=== PATIENT | male | born 1995 | race Caucasian/White ===

== ENCOUNTER 2016-05-06 07:44 | Emergency (ER) | payer SELFPAY ==
[~2016-05-06] VITALS: Ht 182.9 cm; Wt 93.0 kg
[~2016-05-06 07:44] MED LIST: CEPH500C PO; INSULIN PUMP; SULF1TAB38 PO; TRAM50TA2 PO
[2016-05-06] MEDS ORDERED: NS IV 1000 ML 1,000 ML IV ONE (07:50)
--- NOTE | 2016-05-06 08:03 | ED General ---
General Chief Complaint: Glucose Problems Stated Complaint: LOW BLOOD SUGAR Nursing Triage Note: c/o seizure-like activity while in bed this morning. Pt was given a injection of glucagon by his girlfriend. BS was in the 30s by EMS. On ER, pt awake but mildly confused. Nursing Sepsis Screen: No Definite Risk Source of Information: Patient Exam Limitations: No Limitations History of Present Illness Time Seen by Provider: 07:43 Initial Comments Here with report of seizure this morning and low blood sugar. He has had seizures with low blood sugar previously. He is a diabetic and is on an insulin pump. His girlfriend noted that he was convulsing when she woke up this morning. She did check his blood sugar and it was 30s. She did give him a shot of glucagon. EMS was summoned. On their arrival his blood sugar was in the 50s and then greater than 100. They did initiate an IV and monitor him. He was postictal and somewhat confused but otherwise no other complaints. Girlfriend did remove the insulin pump. Aside from being mildly confused currently he is having no complaints. Girlfriend reports that he did not hit his head or fall. Timing/Duration: 1/2 Hour Severity: Moderate Modifying Factors: improves with Medication Associated Systoms: Seizure Allergies and Home Medications Allergies Coded Allergies: promethazine (Unverified Adverse Reaction, Unknown, MADE HIM RESTLESS AFTER GIVING. , 10/08/13) Home Medications [Insulin Pump] , (Reported) Constitutional: see HPI, No chills, No fever EENTM: other (small abrasion on tongue) Respiratory: no symptoms reported Cardiovascular: no symptoms reported Gastrointestinal: no symptoms reported Genitourinary: no symptoms reported Musculoskeletal: no symptoms reported Skin: lesions (few abrasions.) All Other Systems Reviewed Negative Unless Noted: Yes Past Wbrzuut-Ajfatp-Mticge Hx Patient Social History Alcohol Use: Occasionally Uses Recreational Drug Use: No Smoking Status: Never a Smoker Recent Foreign Travel: No Contact w/Someone Who Travel: No Recent Infectious Disease Expo: No Recent Hopitalizations: No Immunizations Up To Date Tetanus Booster (TDap): Unknown Surgeries HX Surgeries: No Respiratory Hx Respiratory Disorders: No Cardiovascular Hx Cardiac Disorders: No Neurological Hx Neurological Disorders: Yes (associated with hypoglycemia) Neurological Disorders: Seizure Disorder Reproductive System Hx Reproductive Disorders: No Sexually Transmitted Disease: No HIV/AIDS: No Genitourinary Hx Genitourinary Disorders: No Gastrointestinal Hx Gastrointestinal Disorders: Yes (CELIAC DISEASE) Musculoskeletal Hx Musculoskeletal Disorders: No Endocrine Hx Endocrine Disorders: Yes (INSULIN PUMP) Endocrine Disorders: Diabetes, Insulin dep HEENT HX ENT Disorders: No Reviewed Nursing Assessment Reviewed/Agree w Nursing PMH: Yes Family Medical History Significant Family History: No Pertinent Family Hx Physical Exam Vital Signs Vital Sign - Last 12Hours 05/06/16 07:50 Temp 98.7 Pulse 88 Resp 16 B/P (MAP) 139/86 Pulse Ox 96 O2 Delivery Room Air Capillary Refill : Less Than 3 Seconds General Appearance: No Apparent Distress, WD/WN HEENT: PERRL/EOMI, Pharynx Normal, Other (small abrasion to the tip of the left side of the tongue.) Neck: Non Tender, Supple Respiratory: Lungs Clear, Normal Breath Sounds Cardiovascular: Regular Rate, Rhythm, No Murmur Gastrointestinal: Non Tender, Soft Back: Normal Inspection, No CVA Tenderness, No Vertebral Tenderness Extremity: Non Tender, No Calf Tenderness Neurologic/Psychiatric: Alert, Oriented x3 Skin: Normal Color, Warm/Dry Progress/Results/Core Measures Results/Orders Lab Results Laboratory Tests Test 05/06/16 07:50 Range/Units White Blood Count 5.2 4.3-11.0 10^3/uL Red Blood Count 5.52 4.35-5.85 10^6/uL Hemoglobin 16.5 13.3-17.7 G/DL Hematocrit 47 40-54 % Mean Corpuscular Volume 85 80-99 FL Mean Corpuscular Hemoglobin 30 25-34 PG Mean Corpuscular Hemoglobin Concent 35 32-36 G/DL Red Cell Distribution Width 12.9 10.0-14.5 % Platelet Count 224 130-400 10^3/uL Mean Platelet Volume 9.6 7.4-10.4 FL Neutrophils (%) (Auto) 37 L 42-75 % Lymphocytes (%) (Auto) 45 H 12-44 % Monocytes (%) (Auto) 12 0-12 % Eosinophils (%) (Auto) 6 0-10 % Basophils (%) (Auto) 1 0-10 % Neutrophils # (Auto) 1.9 1.8-7.8 X 10^3 Lymphocytes # (Auto) 2.4 1.0-4.0 X 10^3 Monocytes # (Auto) 0.6 0.0-1.0 X 10^3 Eosinophils # (Auto) 0.3 0.0-0.3 10^3/uL Basophils # (Auto) 0.0 0.0-0.1 10^3/uL Sodium Level 141 135-145 MMOL/L Potassium Level 3.6 3.6-5.0 MMOL/L Chloride Level 104 98-107 MMOL/L Carbon Dioxide Level 24 21-32 MMOL/L Anion Gap 13 5-14 MMOL/L Blood Urea Nitrogen 15 7-18 MG/DL Creatinine 0.84 0.60-1.30 MG/DL Estimat Glomerular Filtration Rate > 60 BUN/Creatinine Ratio 18 Glucose Level 145 H 70-105 MG/DL Calcium Level 9.2 8.5-10.1 MG/DL Magnesium Level 2.0 1.8-2.4 MG/DL Total Bilirubin 0.9 0.1-1.0 MG/DL Aspartate Amino Transf (AST/SGOT) 35 H 5-34 U/L Alanine Aminotransferase (ALT/SGPT) 53 0-55 U/L Alkaline Phosphatase 48 40-136 U/L Total Protein 6.8 6.4-8.2 G/DL Albumin 4.3 3.2-4.5 G/DL My Orders Orders - CHANDAN POTTS MD Cbc With Automated Diff (05/06/16 07:50) Comprehensive Metabolic Panel (05/06/16 07:50) Magnesium (05/06/16 07:50) Ns Iv 1000 Ml (Sodium Chloride 0.9%) (05/06/16 07:50) Ondansetron Injection (Zofran Injectio (05/06/16 09:00) Medications Given in ED Current Medications Medications Dose Ordered Sig/Royer Route Start Time Stop Time Status Last Admin Dose Admin Ondansetron HCl 8 mg ONCE ONCE IVP 05/06/16 09:00 05/06/16 09:01 DC 05/06/16 09:02 8 MG Sodium Chloride 1,000 ml @ 0 mls/hr Q0M ONCE IV 05/06/16 07:50 05/06/16 07:51 DC 05/06/16 07:58 1,000 MLS/HR Vital Signs/I&O Vital Sign - Last 12Hours 05/06/16 07:50 Temp 98.7 Pulse 88 Resp 16 B/P (MAP) 139/86 Pulse Ox 96 O2 Delivery Room Air Blood Pressure Mean: 103 Progress Note : Progress Note Seen and evaluated. IV by EMS. Labs and normal saline 1 L bolus ordered. Monitor patient. Repeat fingerstick blood sugar was 153. Patient did report some nausea. Zofran 8 mg IV ordered. 929: Sugar 102. Patient states he feels much better. He has appointment with his primary physician today at 3 p.m. and he and his girlfriend will go there. Discharged home with return precautions. Patient verbalize understanding instructions and agreement with plan. Departure Impression Impression: Primary Impression: Hypoglycemic event in diabetes Disposition: HOME, SELF-CARE Condition: Improved Departure-Patient Inst. Decision time for Depature: 09:38 Referrals: NO,LOCAL PHYSICIAN (PCP/Family) Primary Care Physician Patient Instructions: HYPOGLYCEMIA Add. Discharge Instructions: All discharge instructions reviewed with patient and/or family. Voiced understanding. Continue home medications as directed. Eat a normal diet and drink plenty of fluids. Follow-up with your Dr. today as scheduled. Carefully monitor your blood sugars. Refill your glucagon prescription. Return for worsening, fever, vomiting, weakness, breathing problems or other concerns as needed. Copy Copies To 1: HÉCTOR VILLALOBOS MD, TIMOTHY D MD May 06, 2016 08:02
[2016-05-06 08:04] LABS: BASOPHILS % (AUTO) 1 % (0-10); EOSINOPHILS # (AUTO) 0.3 10^3/uL (0.0-0.3); EOSINOPHILS % (AUTO) 6 % (0-10); LYMPHOCYTES # (AUTO) 2.4 X 10^3 (1.0-4.0); LYMPHOCYTES % (AUTO) 45 % (12-44); MEAN CORPUSCULAR HEMOGLOBIN 30 PG (25-34); MEAN CORPUSCULAR HGB CONC 35 G/DL (32-36); MEAN CORPUSCULAR VOLUME 85 FL (80-99); MEAN PLATELET VOLUME 9.6 FL (7.4-10.4); MONOCYTES # (AUTO) 0.6 X 10^3 (0.0-1.0); MONOCYTES % (AUTO) 12 % (0-12); NEUTROPHILS # (AUTO) 1.9 X 10^3 (1.8-7.8); NEUTROPHILS % (AUTO) 37 % (42-75); PLATELET COUNT 224 10^3/uL (130-400); RED BLOOD COUNT 5.52 10^6/uL (4.35-5.85); RED CELL DISTRIBUTION WIDTH 12.9 % (10.0-14.5); WHITE BLOOD COUNT 5.2 10^3/uL (4.3-11.0)
[2016-05-06 08:25] LABS: ALANINE AMINOTRANSFERASE 53 U/L (0-55); ALBUMIN 4.3 G/DL (3.2-4.5); ANION GAP 13 MMOL/L (5-14); ASPARTATE AMINO TRANSFERASE 35 U/L (5-34); BILIRUBIN,TOTAL 0.9 MG/DL (0.1-1.0); BLOOD UREA NITROGEN 15 MG/DL (7-18); BUN/CREATININE RATIO 18; CALCIUM 9.2 MG/DL (8.5-10.1); CARBON DIOXIDE 24 MMOL/L (21-32); CHLORIDE 104 MMOL/L (98-107); CREATININE SERUM 0.84 MG/DL (0.60-1.30); GFR ESTIMATED > 60; GLUCOSE 145 MG/DL (70-105); POTASSIUM 3.6 MMOL/L (3.6-5.0); SODIUM 141 MMOL/L (135-145); TOTAL PROTEIN 6.8 G/DL (6.4-8.2)
[2016-05-06] MEDS ORDERED: ONDANSETRON 4 MG/2 ML (SDV) Z0FRAN IVP ONE (09:00)
[2016-05-06 09:45] VITALS: BP 134/76
--- OUTSIDE RECORDS SUMMARY | 2016-05-20 20:20 | XMS REPORT | Continuity of Care Document ---
Demographics Preferred Language Unknown Marital Status Unknown Taoist Affiliation Unknown Race Unknown Ethnic Group Unknown Author Author [facility] Address Unknown Phone Unavailable Allergies Active Description Code Type Severity Reaction Onset Reported/Identified Relationship to Patient Clinical Status Yes promethazine [id number] Drug Allergy Unknown MADE HIM RESTLE 10/08/2013 Medications Problems Date Dx Coded Attending Type Code Diagnosis Diagnosed By 12/11/2012 GALINDO MONK, INÉS R Ot 250.81 DIAB W OTH SPEC MANIFEST, TYPE I [JUVENI 04/19/2013 DHEERAJ WHITAKER SASH FINISHER Ot 682.3 CELLULITIS OF ARM 10/08/2013 JOSE PATEL DO Ot 250.80 DIAB W OTH SPEC MANIFEST, TYPE II OR UNS 01/09/2014 Ot 816.01 01/09/2014 Ot E000.8 01/09/2014 Ot E007.0 01/09/2014 Ot E928.9 01/09/2014 WILFREDO MONK, HÉCTOR Iglesias Ot 785.2 01/09/2014 KATHERINE HODGES DO Ot 250.01 01/09/2014 KATHERINE HODGES DO Ot 285.9 01/09/2014 KATHERINE HODGES DO Ot 493.90 01/09/2014 KATHERINE HODGES DO Ot 579.0 01/09/2014 Ot 816.01 01/09/2014 Ot E000.8 01/09/2014 Ot E007.0 01/09/2014 Ot E928.9 01/09/2014 HÉCTOR VILLALOBOS MD Ot 785.2 01/09/2014 KATHERINE HODGES DO Ot 250.01 01/09/2014 KATHERINE HODGES DO Ot 285.9 01/09/2014 KATHERINE HODGES DO Ot 493.90 01/09/2014 KATHERINE HODGES DO Ot 579.0 01/09/2014 AMRIT STALLWORTH Ot 882.0 OPEN WOUND OF HAND 01/09/2014 AMRIT STALLWORTH Ot E000.8 OTHER EXTERNAL CAUSE STATUS 01/09/2014 AMRIT STALLWORTH Ot E920.8 ACC-CUTTING INSTRUM NEC 01/09/2014 AMRIT STALLWORTH Ot V06.1 [id number], COMBINED [ 01/13/2014 Ot 816.01 01/13/2014 Ot E000.8 01/13/2014 Ot E007.0 01/13/2014 Ot E928.9 01/13/2014 WILFREDO MONK, HÉCTOR Iglesias Ot 785.2 01/13/2014 BORTMES DOKATHERINE E Ot 250.01 01/13/2014 BORTMES DO, KATHERINE E Ot 285.9 01/13/2014 BORTMES DO, KATHERINE E Ot 493.90 01/13/2014 BORTMES DO, KATHERINE E Ot 579.0 10/03/2014 Ot 816.01 10/03/2014 Ot E000.8 10/03/2014 Ot E007.0 10/03/2014 Ot E928.9 10/03/2014 WILFREDO MONK, HÉCTOR Iglesias Ot 785.2 10/03/2014 BORTMES DO, KATHERINE E Ot 250.01 10/03/2014 BORTMES DO, KATHERINE E Ot 285.9 10/03/2014 BORTMES DO, KATHERINE E Ot 493.90 10/03/2014 BORTMES DO, KATHERINE E Ot 579.0 10/19/2014 BORTMES DO, KATHERINE E Ot 250.01 10/19/2014 BORTMES DO, KATHERINE E Ot 281.9 10/19/2014 BORTMES DO, KATHERINE E Ot 579.0 11/10/2014 Ot 816.01 11/10/2014 Ot E000.8 11/10/2014 Ot E007.0 11/10/2014 Ot E928.9 11/10/2014 HÉCTOR VILLALOBOS MD Ot 785.2 11/10/2014 BORTMES DO, KATHERINE E Ot 250.01 11/10/2014 BORTMES DO, KATHERINE E Ot 285.9 11/10/2014 BORTMES DO, KATHERINE E Ot 493.90 11/10/2014 BORTMES DO, KATHERINE E Ot 579.0 11/10/2014 BORTMES DO, KATHERINE E Ot 250.01 11/10/2014 BORTMES DO, KATHERINE E Ot 281.9 11/10/2014 BORVANNESSAES DO, KATHERINE E Ot 579.0 06/09/2015 Ot 816.01 FX MID/PRX PHAL, HAND-CL 06/09/2015 Ot E000.8 OTHER EXTERNAL CAUSE STATUS 06/09/2015 Ot E007.0 ACTIVITIES INVOLVING BULGARIAN TACKLE NEHEMIAS 06/09/2015 Ot E928.9 ACCIDENT NOS 06/09/2015 WILFREDO MONK, HÉCTOR Iglesias Ot 785.2 CARDIAC MURMURS NEC 06/09/2015 BORTMES DO, KATHERINE E Ot 250.01 DIAB REY WO COMPL, TYPE I [JUVENILE TYP 06/09/2015 BORTMES DO, KATHERINE E Ot 285.9 ANEMIA NOS 06/09/2015 BORTMES DO, KATHERINE E Ot 493.90 ASTHMA, UNSPECIFIED 06/09/2015 BORTMES DO, KATHERINE E Ot 579.0 CELIAC DISEASE 06/09/2015 BORTMES DO, KATHERINE E Ot 250.01 DIAB REY WO COMPL, TYPE I [JUVENILE TYP 06/09/2015 BORTMES DO, KATHERINE E Ot 281.9 DEFICIENCY ANEMIA NOS 06/09/2015 BORTMES DO, KATHERINE E Ot 579.0 CELIAC DISEASE 06/09/2015 URIEL JOHNSON MD Ot E10.9 TYPE 1 DIABETES MELLITUS WITHOUT COMPLIC 06/09/2015 URIEL JOHNSON MD Ot R56.9 UNSPECIFIED CONVULSIONS 06/09/2015 URIEL JOHNSON MD Ot T38.3X5A ADVERSE EFFECT OF INSULIN AND ORAL HYPOG 06/11/2015 URIEL JOHNSON MD Ot E10.9 TYPE 1 DIABETES MELLITUS WITHOUT COMPLIC 06/11/2015 URIEL JOHNSON MD Ot R56.9 UNSPECIFIED CONVULSIONS 06/11/2015 URIEL JOHNSON MD Ot T38.3X5A ADVERSE EFFECT OF INSULIN AND ORAL HYPOG 06/12/2015 URIEL JOHNSON MD Ot E10.9 TYPE 1 DIABETES MELLITUS WITHOUT COMPLIC 06/12/2015 URIEL JOHNSON MD Ot R56.9 UNSPECIFIED CONVULSIONS 06/12/2015 URIEL JOHNSON MD Ot T38.3X5A ADVERSE EFFECT OF INSULIN AND ORAL HYPOG 06/12/2015 URIEL JOHNSON MD Ot E10.9 TYPE 1 DIABETES MELLITUS WITHOUT COMPLIC 06/12/2015 URIEL JOHNSON MD Ot R56.9 UNSPECIFIED CONVULSIONS 06/12/2015 URIEL JOHNSON MD Ot T38.3X5A ADVERSE EFFECT OF INSULIN AND ORAL HYPOG 07/04/2015 URIEL JOHNSON MD Ot E10.9 TYPE 1 DIABETES MELLITUS WITHOUT COMPLIC 07/04/2015 URIEL JOHNSON MD Ot R56.9 UNSPECIFIED CONVULSIONS 07/04/2015 URIEL JOHNSON MD, Ot T38.3X5A ADVERSE EFFECT OF INSULIN AND ORAL HYPOG 05/06/2016 CHANDAN POTTS MD Ot E11.649 TYPE 2 DIABETES MELLITUS WITH HYPOGLYCEM 05/06/2016 CHANDAN POTTS MD Ot G40.909 EPILEPSY, UNSP, NOT INTRACTABLE, WITHOUT 05/06/2016 CHANADN POTTS MD Ot Z96.41 PRESENCE OF INSULIN PUMP (EXTERNAL) ( INT 05/06/2016 CHANDAN POTTS MD, Ot E11.649 TYPE 2 DIABETES MELLITUS WITH HYPOGLYCEM 05/06/2016 CHANDAN POTTS MD Ot G40.909 EPILEPSY, UNSP, NOT INTRACTABLE, WITHOUT 05/06/2016 CHANDAN POTTS MD Ot Z96.41 PRESENCE OF INSULIN PUMP (EXTERNAL) ( INT 05/08/2016 WILFREDO MONK, HÉCTOR Iglesias Ot 785.2 CARDIAC MURMURS NEC 05/08/2016 KATHERINE HODGES DO Ot 250.01 DIAB REY WO COMPL, TYPE I [JUVENILE TYP 05/08/2016 KATHERINE HOGDES DO E Ot 285.9 ANEMIA NOS 05/08/2016 KATHERINE HODGES DO E Ot 493.90 ASTHMA, UNSPECIFIED 05/08/2016 KATHERINE HODGES DO E Ot 579.0 CELIAC DISEASE 05/08/2016 KATHERINE HODGES DO E Ot 250.01 DIAB REY WO COMPL, TYPE I [JUVENILE TYP 05/08/2016 KATHERINE HODGES DO E Ot 281.9 DEFICIENCY ANEMIA NOS 05/08/2016 KATHERINE HODGES DO E Ot 579.0 CELIAC DISEASE Procedures Results Test Result Range Capillary blood glucose measurement by glucometer (mass/volume) - 05/06/16 07: 46 Capillary blood glucose measurement by glucometer (mass/volume) 153 mg/dL 70-110 Complete blood count (CBC) with automated white blood cell (WBC) differential - 05/06/16 07:50 Blood leukocytes automated count (number/volume) 5.2 10*3/ uL 4.3-11.0 Blood erythrocytes automated count (number/volume) 5.52 10*6 /uL 4.35-5.85 Venous blood hemoglobin measurement (mass/volume) 16.5 g/dL 13.3-17.7 Blood hematocrit (volume fraction) 47 % 40-54 Automated erythrocyte mean corpuscular volume 85 [foz_us] 80-99 Automated erythrocyte mean corpuscular hemoglobin (mass per erythrocyte) 30 pg 25-34 Automated erythrocyte mean corpuscular hemoglobin concentration measurement ( mass/volume) 35 g/dL 32-36 Automated erythrocyte distribution width ratio 12.9 % 10.0-14.5 Automated blood platelet count (count/volume) 224 10*3/uL 130-400 Automated blood platelet mean volume measurement 9.6 [foz_us ] 7.4-10.4 Automated blood neutrophils/100 leukocytes 37 % 42-75 Automated blood lymphocytes/100 leukocytes 45 % 12-44 Blood monocytes/100 leukocytes 12 % 0-12 Automated blood eosinophils/100 leukocytes 6 % 0-10 Automated blood basophils/100 leukocytes 1 % 0-10 Blood neutrophils automated count (number/volume) 1.9 10*3 1.8-7.8 Blood lymphocytes automated count (number/volume) 2.4 10*3 1.0-4.0 Blood monocytes automated count (number/volume) 0.6 10*3 0.0-1.0 Automated eosinophil count 0.3 10*3/uL 0.0-0.3 Automated blood basophil count (count/volume) 0.0 10*3/uL 0.0-0.1 Comprehensive metabolic panel - 05/06/16 07:50 Serum or plasma sodium measurement (moles/volume) 141 mmol/ L 135-145 Serum or plasma potassium measurement (moles/volume) 3.6 mmol/L 3.6-5.0 Serum or plasma chloride measurement (moles/volume) 104 mmol /L 98-107 Carbon dioxide 24 mmol/L 21-32 Serum or plasma anion gap determination (moles/volume) 13 mmol/L 5-14 Serum or plasma urea nitrogen measurement (mass/volume) 15 mg/dL 7-18 Serum or plasma creatinine measurement (mass/volume) 0.84 mg /dL 0.60-1.30 Serum or plasma urea nitrogen/creatinine mass ratio 18 NRG Serum or plasma creatinine measurement with calculation of estimated glomerular filtration rate > NRG Serum or plasma glucose measurement (mass/volume) 145 mg/dL 70-105 Serum or plasma calcium measurement (mass/volume) 9.2 mg/dL 8.5-10.1 Serum or plasma total bilirubin measurement (mass/volume) 0.9 mg/dL 0.1-1.0 Serum or plasma alkaline phosphatase measurement (enzymatic activity/volume) 48 U/L 40-136 Serum or plasma aspartate aminotransferase measurement (enzymatic activity/ volume) 35 U/L 5-34 Serum or plasma alanine aminotransferase measurement (enzymatic activity/volume ) 53 U/L 0-55 Serum or plasma protein measurement (mass/volume) 6.8 g/dL 6.4-8.2 Serum or plasma albumin measurement (mass/volume) 4.3 g/dL 3.2-4.5 Magnesium - 05/06/16 07:50 Magnesium 2.0 mg/dL 1.8-2.4 Capillary blood glucose measurement by glucometer (mass/volume) - 05/06/16 09: 31 Capillary blood glucose measurement by glucometer (mass/volume) 103 mg/dL 70-110 Encounters ACCT No. Visit Date/Time Discharge Status Pt. Type Provider Facility Loc./Unit Complaint [id number] 02/18/2012 19:53:58 RECURRING
== END 2016-05-06 09:43 | disposition home or self-care (01) ==
LOC: EDUNIT# 07:44 → ER 07:49
DX: G40.909 Epilepsy, unspecified, not intractable, without status epilepticus (principal); E11.649 Type 2 diabetes mellitus with hypoglycemia without coma; Z96.41 Presence of insulin pump (external) (internal)
CPT/HCPCS: 36415; 80053; 82962; 83735; 85025; 96361; 96374

== ENCOUNTER 2017-04-30 16:16 | Emergency (ER) | payer OTHER, BC ==
[~2017-04-30] VITALS: Ht 182.9 cm; Wt 95.3 kg
[2017-04-30 17:00] LABS: BASOPHILS % (AUTO) 0 % (0-10); EOSINOPHILS # (AUTO) 0.1 10^3/uL (0.0-0.3); EOSINOPHILS % (AUTO) 1 % (0-10); HEMATOCRIT 43 % (40-54); HEMOGLOBIN 15.7 G/DL (13.3-17.7); LYMPHOCYTES # (AUTO) 1.3 X 10^3 (1.0-4.0); LYMPHOCYTES % (AUTO) 14 % (12-44); MEAN CORPUSCULAR HEMOGLOBIN 30 PG (25-34); MEAN CORPUSCULAR HGB CONC 36 G/DL (32-36); MEAN CORPUSCULAR VOLUME 81 FL (80-99); MONOCYTES # (AUTO) 0.6 X 10^3 (0.0-1.0); MONOCYTES % (AUTO) 7 % (0-12); NEUTROPHILS # (AUTO) 7.2 X 10^3 (1.8-7.8); NEUTROPHILS % (AUTO) 78 % (42-75); PLATELET COUNT 238 10^3/uL (130-400); RED BLOOD COUNT 5.33 10^6/uL (4.35-5.85); RED CELL DISTRIBUTION WIDTH 13.1 % (10.0-14.5); WHITE BLOOD COUNT 9.3 10^3/uL (4.3-11.0)
[2017-04-30] MEDS ORDERED: ONDANSETRON 4 MG/2 ML (SDV) Z0FRAN IVP ONE (17:00)
[2017-04-30] MEDS ORDERED: NS IV 1000 ML 1,000 ML IV SCH (17:00)
[2017-04-30 17:20] LABS: ALANINE AMINOTRANSFERASE 22 U/L (0-55); ALBUMIN 4.8 GM/DL (3.2-4.5); ALKALINE PHOSPHATASE 45 U/L (40-136); BILIRUBIN,TOTAL 0.8 MG/DL (0.1-1.0); BUN/CREATININE RATIO 17; CALCIUM 9.5 MG/DL (8.5-10.1); CARBON DIOXIDE 29 MMOL/L (21-32); CHLORIDE 103 MMOL/L (98-107); CREATININE SERUM 0.84 MG/DL (0.60-1.30); GFR ESTIMATED > 60; GLUCOSE 106 MG/DL (70-105); POTASSIUM 3.4 MMOL/L (3.6-5.0); SODIUM 140 MMOL/L (135-145); TOTAL PROTEIN 7.7 GM/DL (6.4-8.2)
--- NOTE | 2017-04-30 17:21 | Diagnostic Imaging Report ---
PROCEDURE: CT head without contrast. TECHNIQUE: Multiple contiguous axial images were obtained through the brain without the use of intravenous contrast. DATE: April 30, 2017. COMPARISON: CT head December 11, 2012. INDICATION: 21-year-old male, seizure. FINDINGS: The ventricles and cerebral spinal fluid spaces are of normal size and configuration for the patient's age. There is no mass effect or midline shift. There is no acute intracranial hemorrhage. There is no abnormal extra-axial fluid collection. The visualized portions of the paranasal sinuses, mastoid air cells and middle ears are well aerated. IMPRESSION: 1. No identified acute intracranial abnormality. Dictated by: Dictated on workstation # [id number]
--- NOTE | 2017-04-30 17:36 | ED General ---
General Chief Complaint: Neurological Problems Stated Complaint: SEIZURE Nursing Triage Note: c/o suspected seizure activity. Pt was found at his house confused with the bed sheets "all messed up". Hx of hypoglycemia related seizures. Nursing Sepsis Screen: No Definite Risk Source of Information: Patient, Other (significant other) Exam Limitations: No Limitations History of Present Illness Date Seen by Provider: Apr 30, 2017 Time Seen by Provider: 17:31 Initial Comments The patient is a 21-year-old white male who comes to the emergency room with a history of possibly having had a seizure. This happened while he was sleeping at about 1500 hours. He has previously had a hypoglycemic seizure about one year ago. He is a juvenile diabetic with the onset at age 2. He uses a pump and would have been on his basal rate during his sleeping hours. He states that his last hemoglobin A1c was 7.4. Timing/Duration: 1-3 Hours Allergies and Home Medications Allergies Coded Allergies: promethazine (Unverified Adverse Reaction, Unknown, MADE HIM RESTLESS AFTER GIVING. , 10/08/13) Patient Home Medication List Home Medication List Reviewed: Yes Constitutional: see HPI EENTM: no symptoms reported Respiratory: no symptoms reported Cardiovascular: no symptoms reported Gastrointestinal: no symptoms reported Musculoskeletal: no symptoms reported Skin: no symptoms reported Psychiatric/Neurological: Other (significant other surmises that he had a seizure as the bed clothing was terribly must. There was no urine or stool. He also seemed confused as he awakened.) Past Yqcdnrj-Mmpmqo-Zkhtmd Hx Patient Social History Alcohol Use: Denies Use Recreational Drug Use: No Smoking Status: Never a Smoker Recent Foreign Travel: No Contact w/Someone Who Travel: No Recent Infectious Disease Expo: No Recent Hopitalizations: No Immunizations Up To Date Tetanus Booster (TDap): Unknown Surgeries History of Surgeries: No Respiratory History of Respiratory Disorde: No Cardiovascular History of Cardiac Disorders: No Neurological History of Neurological Disord: Yes (associated with hypoglycemia) Neurological Disorders: Seizure Disorder Reproductive System Hx Reproductive Disorders: No Sexually Transmitted Disease: No HIV/AIDS: No Gastrointestinal History of Gastrointestinal Di: Yes (CELIAC DISEASE) Musculoskeletal History of Musculoskeletal Dis: No Endocrine History of Endocrine Disorders: Yes (INSULIN PUMP) Endocrine Disorders: Diabetes, Insulin dep Family Medical History Significant Family History: No Pertinent Family Hx Physical Exam Vital Signs Vital Signs - First Documented 04/30/17 16:16 Temp 98.1 Pulse 76 Resp 15 B/P (MAP) 140/86 (104) Pulse Ox 98 Capillary Refill : Less Than 3 Seconds General Appearance: No Apparent Distress, WD/WN Eyes: Bilateral Eye Normal Inspection HEENT: Normal ENT Inspection Neck: Normal Inspection Respiratory: Chest Non Tender, Lungs Clear, Normal Breath Sounds, No Accessory Muscle Use, No Respiratory Distress Cardiovascular: Regular Rate, Rhythm Gastrointestinal: Normal Bowel Sounds Back: Normal Inspection, No CVA Tenderness Extremity: Other (multiple punctate lesions on the dorsal surface of the hands and arms suggesting folliculitis) Lymphatic: No Adenopathy Progress/Results/Core Measures Suspected Sepsis Recent Fever Within 48 Hours: No Infection Criteria Present: None New/Unexplained Altered Menta: No Sepsis Screen: No Definite Risk Sepsis Diagnosis: SIRS Temperature:98.1 Pulse: 76 Respiratory Rate: 15 Laboratory Tests 04/30/17 16:50: White Blood Count 9.3 Blood Pressure 140 /86 Mean: 104 Laboratory Tests 04/30/17 16:50: Creatinine 0.84, Platelet Count 238, Total Bilirubin 0.8 Results/Orders Lab Results Laboratory Tests Test 04/30/17 16:50 Range/Units White Blood Count 9.3 4.3-11.0 10^3/uL Red Blood Count 5.33 4.35-5.85 10^6/uL Hemoglobin 15.7 13.3-17.7 G/DL Hematocrit 43 40-54 % Mean Corpuscular Volume 81 80-99 FL Mean Corpuscular Hemoglobin 30 25-34 PG Mean Corpuscular Hemoglobin Concent 36 32-36 G/DL Red Cell Distribution Width 13.1 10.0-14.5 % Platelet Count 238 130-400 10^3/uL Mean Platelet Volume 10.0 7.4-10.4 FL Neutrophils (%) (Auto) 78 H 42-75 % Lymphocytes (%) (Auto) 14 12-44 % Monocytes (%) (Auto) 7 0-12 % Eosinophils (%) (Auto) 1 0-10 % Basophils (%) (Auto) 0 0-10 % Neutrophils # (Auto) 7.2 1.8-7.8 X 10^3 Lymphocytes # (Auto) 1.3 1.0-4.0 X 10^3 Monocytes # (Auto) 0.6 0.0-1.0 X 10^3 Eosinophils # (Auto) 0.1 0.0-0.3 10^3/uL Basophils # (Auto) 0.0 0.0-0.1 10^3/uL Sodium Level 140 135-145 MMOL/L Potassium Level 3.4 L 3.6-5.0 MMOL/L Chloride Level 103 98-107 MMOL/L Carbon Dioxide Level 29 21-32 MMOL/L Anion Gap 8 5-14 MMOL/L Blood Urea Nitrogen 14 7-18 MG/DL Creatinine 0.84 0.60-1.30 MG/DL Estimat Glomerular Filtration Rate > 60 BUN/Creatinine Ratio 17 Glucose Level 106 H 70-105 MG/DL Calcium Level 9.5 8.5-10.1 MG/DL Total Bilirubin 0.8 0.1-1.0 MG/DL Aspartate Amino Transf (AST/SGOT) 26 5-34 U/L Alanine Aminotransferase (ALT/SGPT) 22 0-55 U/L Alkaline Phosphatase 45 40-136 U/L Total Protein 7.7 6.4-8.2 GM/DL Albumin 4.8 H 3.2-4.5 GM/DL Thyroid Stimulating Hormone (TSH) 1.22 0.35-4.94 UIU/ML Medications Given in ED Current Medications Medications Dose Ordered Sig/Royer Route Start Time Stop Time Status Last Admin Dose Admin Ondansetron HCl 8 mg ONCE ONCE IVP 04/30/17 17:00 04/30/17 17:01 DC 04/30/17 17:15 8 MG Vital Signs/I&O Vital Sign - Last 12Hours 04/30/17 16:16 Temp 98.1 Pulse 76 Resp 15 B/P (MAP) 140/86 (104) Pulse Ox 98 Capillary Refill : Less Than 3 Seconds Blood Pressure Mean: 104 Departure Impression Impression: Primary Impression: HHYPOGLYCEMIC SEIZURE Disposition: HOME, SELF-CARE Condition: Improved Departure-Patient Inst. Decision time for Depature: 17:50 Referrals: CESAR EASLEY DO (PCP) Primary Care Physician Patient Instructions: Seizures, Adult (DC) Add. Discharge Instructions: All discharge instructions reviewed with patient and/or family. Voiced understanding. Observe for unusually low sugars while awake. Your endocrine labs requested by your lacquer shader should be available to you by Thursday. Please call medical records to arrange transfer of results. URIEL JOHNSON MD Apr 30, 2017 17:36
[2017-04-30 17:55] VITALS: BP 132/82
== END 2017-04-30 17:55 | disposition home or self-care (01) ==
LOC: EDUNIT# 16:16 → ER 16:18
DX: G40.89 Other seizures (principal); E11.649 Type 2 diabetes mellitus with hypoglycemia without coma; Z87.19 Personal history of other diseases of the digestive system; Z88.8 Allergy status to other drugs, medicaments and biological substances
CPT/HCPCS: 36415; 70450; 80053; 82533; 82962; 84443; 85025; 96374

== ENCOUNTER 2017-12-17 05:29 | Emergency (ER) | payer BC, OTHER ==
[~2017-12-17] VITALS: Ht 182.9 cm; Wt 90.7 kg
[2017-12-17] MEDS ORDERED: D5 1/2 NS 1000 ML IV SOLUTION 1,000 ML IV ONE (05:40)
[2017-12-17 05:42] LABS: BASOPHILS % (AUTO) 0 % (0-10); EOSINOPHILS # (AUTO) 0.3 10^3/uL (0.0-0.3); EOSINOPHILS % (AUTO) 6 % (0-10); HEMATOCRIT 36 % (40-54); HEMOGLOBIN 11.9 G/DL (13.3-17.7); LYMPHOCYTES # (AUTO) 1.8 X 10^3 (1.0-4.0); LYMPHOCYTES % (AUTO) 39 % (12-44); MEAN CORPUSCULAR HEMOGLOBIN 25 PG (25-34); MEAN CORPUSCULAR HGB CONC 33 G/DL (32-36); MEAN CORPUSCULAR VOLUME 77 FL (80-99); MEAN PLATELET VOLUME 9.6 FL (7.4-10.4); MONOCYTES # (AUTO) 0.7 X 10^3 (0.0-1.0); MONOCYTES % (AUTO) 16 % (0-12); NEUTROPHILS # (AUTO) 1.8 X 10^3 (1.8-7.8); NEUTROPHILS % (AUTO) 39 % (42-75); PLATELET COUNT 214 10^3/uL (130-400); RED BLOOD COUNT 4.73 10^6/uL (4.35-5.85); RED CELL DISTRIBUTION WIDTH 14.2 % (10.0-14.5); WHITE BLOOD COUNT 4.6 10^3/uL (4.3-11.0)
--- NOTE | 2017-12-17 05:51 | ED General ---
General Stated Complaint: SEIZURE Source of Information: Patient (PT HAS NO RECOLLECTION OF EVENTS), EMS, Family (PARENTS) (JOSE PATEL DO) History of Present Illness Date Seen by Provider: Dec 17, 2017 Time Seen by Provider: 05:30 Initial Comments PT ARRIVES VIA EMS FROM HOME PT IS KNOWN DIABETIC AND HAS AN INSULIN PUMP INSURANCE COMPANY CHANGED HIS INSULIN FROM HUMALOG TO NOVOLOG IN THE LAST MONTH , AND BLOOD SUGARS HAVE BEEN VERY ERRATIC SINCE THEN--WERE MUCH MORE STABLE WITH HUMALOG. NATHALIA, PT HAD A SEIZURE IN BED WHILE HE WAS ASLEEP--LASTED 2-3 MINUTES, THEN PT GOT OUT OF BED AND TRIED TO WALK TO THE KITCHEN AND HE FELL AND HIT HIS HEAD ON LINOLEUM FLOOR PT DOES NOT RECALL ANY OF NATHALIA'S EVENTS. DOES NOT REMEMBER GOING TO BED, DOES NOT REMEMBER FALLING, ETC. PT DOES NOT REMEMBER WHAT HIS LAST BLOOD SUGAR READING WAS OR WHEN, BUT STATES HE CHECKS IT ALL THE TIME FAMILY TRIED TO GET HIM TO DRINK JUICE, BUT HE SPILLED IT/UNABLE TO SWALLOW IT EMS REPORT THAT PT WAS AWAKE BUT NOT COHERENT WHEN THEY ARRIVED AND GAVE HIM ORAL GLUCOSE--BLOOD SUGAR WAS 62 AFTER THAT, THEN IT DROPPED TO 50 WHEN THEY PULLED INTO THE ER [facility]BULANCE [facility] AND EMS GAVE 1 AMP OF D50 THEY WERE BRINGING PT INTO ER. ACCUCHECK 213 HERE ON ARRIVAL. PT REFUSED C-COLLAR FOR EMS. PT C/O MILD HEADACHE--STATES IS NORMAL AFTER ONE OF THESE EPISODES DENIES NECK PAIN DENIES PAIN ANYWHERE ELSE. PT STATES HE IS STARTING TO FEEL BETTER NOW. NO SWEATS PT STATES THIS HAS HAPPENED BEFORE MULTIPLE TIMES, WHEN HIS BLOOD SUGAR GETS LOW , BUT THE LAST TIME WAS OVER A YEAR AGO. NO RECENT ILLNESS OR OTHER STRESSORS PCP: DR. David BERGERON DIELECTRIC TESTING MACHINE OPERATOR: JONATHAN SONI (JOSE PATEL DO) Allergies and Home Medications Allergies Coded Allergies: No Known Drug Allergies (Unverified , 12/17/17) Patient Home Medication List Home Medication List Reviewed: Yes (JOSE PATEL DO) Review of Systems Review of Systems Constitutional: see HPI EENTM: no symptoms reported Respiratory: no symptoms reported Cardiovascular: no symptoms reported Gastrointestinal: no symptoms reported Genitourinary: no symptoms reported Musculoskeletal: no symptoms reported Skin: no symptoms reported Psychiatric/Neurological: See HPI Hematologic/Lymphatic: No Symptoms Reported Immunological/Allergic: no symptoms reported (JOSE PATEL DO) Past Szzrsuj-Hvrzmv-Jqvwpn Hx Patient Social History Recent Foreign Travel: No Contact w/Someone Who Travel: No Recent Hopitalizations: No (JOSE PATEL DO) Immunizations Up To Date Tetanus Booster (TDap): Unknown (JOSE PATEL DO) Past Medical History Surgeries: No Respiratory: No Cardiac: No Neurological: Yes (SEIZURES DUE TO SEVERE HYPOGLYCEMIA--NOT EPILEPSY) Seizure Disorder Reproductive Disorders: No Sexually Transmitted Disease: No HIV/AIDS: No Gastrointestinal: Yes (CELIAC DISEASE) Musculoskeletal: No Endocrine: Yes (INSULIN PUMP) Diabetes, Insulin dep HEENT: No Cancer: No Psychosocial: No Integumentary: No Blood Disorders: No (JOSE PATEL DO) Family Medical History No Pertinent Family Hx (JOSE PATEL DO) Physical Exam Vital Signs Vital Signs - First Documented 12/17/17 05:29 Temp 97.7 Pulse 81 Resp 16 B/P (MAP) 137/78 (97) Pulse Ox 97 O2 Delivery Room Air (CHANDAN POTTS MD) Vital Signs Capillary Refill : (JOSE PATEL DO) Height, Weight, BMI Height: 6'0" Weight: 210lbs. oz. 95.098181pm; BMI Method:Stated General Appearance: No Apparent Distress, WD/WN HEENT: PERRL/EOMI, TMs Normal, Normal ENT Inspection, Pharynx Normal, Other ( NO EXTERNAL EVIDENCE OF TRAUMA) Neck: Full Range of Motion, Normal Inspection, Non Tender, Supple Respiratory: Normal Breath Sounds, No Accessory Muscle Use, No Respiratory Distress Cardiovascular: Regular Rate, Rhythm, No Edema, No JVD, No Murmur, Normal Peripheral Pulses Gastrointestinal: Normal Bowel Sounds, No Organomegaly, No Pulsatile Mass, Non Tender, Soft Extremity: Normal Capillary Refill, Normal Inspection, Normal Range of Motion, Non Tender, No Calf Tenderness, No Pedal Edema Neurologic/Psychiatric: Alert, Oriented x3 (BUT MENTATION SLIGHTLY SLOW, AND PT WITH POOR SHORT TERM MEMORY AT THIS TIME. ), No Motor/Sensory Deficits, process lead II-XII Norm as Tested Skin: Normal Color, Warm/Dry (JOSE PATEL DO) Progress/Results/Core Measures Suspected Sepsis SIRS Temperature: Pulse: Respiratory Rate: Laboratory Tests 12/17/17 05:35: White Blood Count 4.6 Blood Pressure / Mean: Laboratory Tests 12/17/17 05:35: Creatinine 0.91, Platelet Count 214, Total Bilirubin 0.4 (JOSE PATEL ) Results/Orders Lab Results Laboratory Tests Test 12/17/17 05:34 12/17/17 05:35 12/17/17 06:42 12/17/17 09:00 Range/Units Glucometer 213 H 295 H 70-110 MG/DL White Blood Count 4.6 4.3-11.0 10^3/uL Red Blood Count 4.73 4.35-5.85 10^6/uL Hemoglobin 11.9 L 13.3-17.7 G/DL Hematocrit 36 L 40-54 % Mean Corpuscular Volume 77 L 80-99 FL Mean Corpuscular Hemoglobin 25 25-34 PG Mean Corpuscular Hemoglobin Concent 33 32-36 G/DL Red Cell Distribution Width 14.2 10.0-14.5 % Platelet Count 214 130-400 10^3/uL Mean Platelet Volume 9.6 7.4-10.4 FL Neutrophils (%) (Auto) 39 L 42-75 % Lymphocytes (%) (Auto) 39 12-44 % Monocytes (%) (Auto) 16 H 0-12 % Eosinophils (%) (Auto) 6 0-10 % Basophils (%) (Auto) 0 0-10 % Neutrophils # (Auto) 1.8 1.8-7.8 X 10^3 Lymphocytes # (Auto) 1.8 1.0-4.0 X 10^3 Monocytes # (Auto) 0.7 0.0-1.0 X 10^3 Eosinophils # (Auto) 0.3 0.0-0.3 10^3/uL Basophils # (Auto) 0.0 0.0-0.1 10^3/uL Erythrocyte Sedimentation Rate 1 0-15 MM/HR Sodium Level 139 135-145 MMOL/L Potassium Level 4.1 3.6-5.0 MMOL/L Chloride Level 104 98-107 MMOL/L Carbon Dioxide Level 23 21-32 MMOL/L Anion Gap 12 5-14 MMOL/L Blood Urea Nitrogen 14 7-18 MG/DL Creatinine 0.91 0.60-1.30 MG/DL Estimat Glomerular Filtration Rate > 60 BUN/Creatinine Ratio 15 Glucose Level 206 H 70-105 MG/DL Calcium Level 9.2 8.5-10.1 MG/DL Corrected Calcium 9.0 8.5-10.1 MG/DL Magnesium Level 2.1 1.8-2.4 MG/DL Total Bilirubin 0.4 0.1-1.0 MG/DL Aspartate Amino Transf (AST/SGOT) 33 5-34 U/L Alanine Aminotransferase (ALT/SGPT) 29 0-55 U/L Alkaline Phosphatase 36 L 40-136 U/L C-Reactive Protein High Sensitivity 0.02 0.00-0.50 MG/DL Total Protein 6.7 6.4-8.2 GM/DL Albumin 4.2 3.2-4.5 GM/DL Urine Color YELLOW Urine Clarity SLIGHTLY CLOUDY Urine pH 7 5-9 Urine Specific Allen 1.010 L 1.016-1.022 Urine Protein NEGATIVE NEGATIVE Urine Glucose (UA) 4+ H NEGATIVE Urine Ketones NEGATIVE NEGATIVE Urine Nitrite NEGATIVE NEGATIVE Urine Bilirubin NEGATIVE NEGATIVE Urine Urobilinogen NORMAL NORMAL MG/DL Urine Leukocyte Esterase NEGATIVE NEGATIVE Urine RBC (Auto) NEGATIVE NEGATIVE Urine RBC NONE /HPF Urine WBC RARE /HPF Urine Squamous Epithelial Cells NONE /HPF Urine Renal Epithelial Cells NONE /HPF Urine Crystals NONE /LPF Urine Bacteria NEGATIVE /HPF Urine Casts NONE /LPF Urine Mucus NEGATIVE /LPF Urine Culture Indicated NO (CHANDAN POTTS MD) My Orders Orders - CHANDAN POTTS MD Acetaminophen Tablet (Tylenol Tablet) (12/17/17 06:22) General/Regular (12/17/17 Breakfast) Hs C Reactive Protein (12/17/17 06:38) Erythrocyte Sedimentation Rate (12/17/17 06:38) Ondansetron Injection (Zofran Injectio (12/17/17 06:45) Ondansetron Injection (Zofran Injectio (12/17/17 07:00) Saline Lock/Iv-Start (12/17/17 06:59) Lactated Ringers (Lr 1000 Ml Iv Solution (12/17/17 06:59) Promethazine Injection (Phenergan Injec (12/17/17 07:06) Promethazine Injection (Phenergan Injec (12/17/17 07:08) (CHANDAN POTTS MD) Medications Given in ED Current Medications Medications Dose Ordered Sig/Royer Route Start Time Stop Time Status Last Admin Dose Admin Acetaminophen 500 mg STK-MED ONCE .ROUTE 12/17/17 06:20 12/17/17 06:22 DC 12/17/17 06:23 1,000 MG Dextrose/Sodium Chloride 1,000 ml @ ud STK-MED ONCE IV 12/17/17 05:40 12/17/17 05:42 DC 12/17/17 05:45 0 MLS/HR Lactated Ringer's 1,000 ml @ 0 mls/hr Q0M ONCE IV 12/17/17 06:59 12/17/17 07:01 DC 12/17/17 07:07 1,000 MLS/HR Ondansetron HCl 4 mg ONCE ONCE IVP 12/17/17 07:00 12/17/17 07:01 DC 12/17/17 06:45 4 MG Ondansetron HCl 4 mg STK-MED ONCE .ROUTE 12/17/17 06:16 12/17/17 06:17 DC 12/17/17 06:22 4 MG (CHANDAN POTTS MD) Vital Signs/I&O 12/17/17 05:29 Temp 97.7 Pulse 81 Resp 16 B/P (MAP) 137/78 (97) Pulse Ox 97 O2 Delivery Room Air (CHANDAN POTTS MD) Vital Signs/I&O Capillary Refill : (JOSE PATEL DO) Progress Note : Progress Note 0600--CARE TURNED OVER TO DR. POTTS, ALL STUDIES PENDING (JOSE PATEL DO) Progress Note : Progress Note 0630: I have seen and evaluated the patient. Labs, EKG and CT scan reviewed. I have reexamined the patient talked with the family. Patient does report that this occasionally occurs but it is been a while and is associated with low blood sugar. Recently had insulin change from Humalog and Novolin due to insurance requirements and he is adjusting to that change. Denies any significant recent illness. Does have asthma and has had to use his inhaler occasionally. Currently feels better but has a little nausea and headache. Zofran 4 mg IV ordered and acetaminophen 1000 mg by mouth ordered. Per family, patient is mentating better now and he is certainly able to hold conversation and answer questions and follow commands without any difficulty. No respiratory distress noted. EKG has pattern that would suggest pericarditis patient is without chest pain or current illness symptoms. He does state that he has had some upper respiratory stuff that he assigned to his asthma in the time of year. No recent fevers, vomiting or diarrhea. Laboratory evaluation CT scan does not suggest a fracture or acute intracranial hemorrhage. We will go ahead and get diet ordered as patient can eat we will recheck glucose afterwards. Overall feeling better currently. 0709: LR 1 L bolus. Repeat Zofran 4 mg IV for persistent nausea. He vomited afterwards. Phenergan 12.5 mg IV. He has allergy listed for promethazine in 2013 in which he had restlessness so we will give the lower dose. Has meal available if nausea improves. Blood sugar is actually increased and he did give himself small bolus from insulin pump of 2 units. Insulin pump actually called 5 units but he only gave 2 due to concerns about hyperglycemia. Monitor patient. 0930: Patient had increased nausea earlier. Phenergan has significantly improved his situation. He is tolerating diet now. UA obtained. 0959: UA negative. Discharged home with return precautions. Patient and family verbalize understanding instructions and agreement with plan. (CHANDAN POTTS MD) ECG Initial ECG Impression Date: Dec 17, 2017 Initial ECG Impression Time: 05:51 Initial ECG Rate: 75 Initial ECG Rhythm: Normal Sinus Initial ECG Comparisson: No Previous ECG Available Comment Sinus rhythm with left ventricular hypertrophy. Sloping pattern globally with slight ST elevation suggesting pericarditis. No evidence of ST elevation MO. Interpreted by me. (CHANDAN POTTS MD) Diagnostic Imaging Diagonstic Imaging: CT Plain Films/CT/US/NM/MRI: c-spine, head Comments NAME: DEEPIKA [facility] REC#: [id number] PT STATUS: REG ER : 1995 PHYSICIAN: JOSE PATEL DO ADMIT DATE: 12/17/17/ER Signed Date of Exam: 12/17/17 CT HEAD/CERVICAL SPINE WO PROCEDURE: CT head and CT cervical spine without contrast. TECHNIQUE: Multiple contiguous axial images were obtained through the brain and cervical spine without the use of intravenous contrast. Sagittal and coronal reformations through the cervical spine were then performed. INDICATION: Seizure. COMPARISON: CT head 04/30/2017 CT HEAD FINDINGS: The ventricles and sulci are within normal limits. There is no midline shift or mass effect. No evidence for acute intracranial hemorrhage or extra-axial fluid collections. The bony calvarium is intact. Minimal paranasal sinus disease. CT CERVICAL SPINE FINDINGS: There is normal alignment and curvature of the cervical spine. There is no evidence for acute bony abnormality. The odontoid is intact. The prevertebral soft tissues are normal. IMPRESSION: 1. No acute intracranial abnormality. If assessment for potential seizure foci desired, correlation with MRI recommended. 2. No evidence for acute cervical spine fracture or subluxation. A preliminary report was provided by [employer]. Dictated by: Dictated on workstation # [id number] Dict: 12/17/17701 Trans: 12/17/17719 Interpreted by: SHEYLA PAREDES DO Electronically signed by: SHEYLA PAREDES DO 12/17/17719 Reviewed: Reviewed Night [facility] Study (CHANDAN POTTS MD) Departure Impression Primary Impression: Hypoglycemic event in diabetes Additional Impression: Acute sinusitis Qualified Codes: J01.90 - Acute sinusitis, unspecified Disposition: HOME, SELF-CARE Condition: Improved Departure-Patient Inst. Decision time for Depature: 09:37 (CHANDAN POTTS MD) Referrals: CESAR EASLEY DO (PCP/Family) Primary Care Physician Patient Instructions: HYPOGLYCEMIA, Sinusitis in Adults Add. Discharge Instructions: Take medications as directed. Follow-up with your Dr. in a few days for recheck and further evaluation as needed.. Drink plenty of fluids. Carefully monitor your blood glucose levels and adjust insulin as needed. Return for worse pain, fever, vomiting, weakness, breathing problems or other concerns as needed. Scripts Amoxicillin/Potassium Clav (Augmentin 875-125 Tablet) 1 Each Tablet 1 EACH PO BID, #14 TAB 0 Refills Prov: CHANDAN POTTS MD 12/17/17 JOSE PATEL DO Dec 17, 2017 05:51 CHANDAN POTTS MD Dec 17, 2017 06:38
[2017-12-17 06:01] LABS: ALANINE AMINOTRANSFERASE 29 U/L (0-55); ALBUMIN 4.2 GM/DL (3.2-4.5); ALKALINE PHOSPHATASE 36 U/L (40-136); BILIRUBIN,TOTAL 0.4 MG/DL (0.1-1.0); BUN/CREATININE RATIO 15; CALCIUM 9.2 MG/DL (8.5-10.1); CARBON DIOXIDE 23 MMOL/L (21-32); CHLORIDE 104 MMOL/L (98-107); CREATININE SERUM 0.91 MG/DL (0.60-1.30); GFR ESTIMATED > 60; GLUCOSE 206 MG/DL (70-105); MAGNESIUM 2.1 MG/DL (1.8-2.4); POTASSIUM 4.1 MMOL/L (3.6-5.0); SODIUM 139 MMOL/L (135-145); TOTAL PROTEIN 6.7 GM/DL (6.4-8.2)
[2017-12-17] MEDS ORDERED: ONDANSETRON 4 MG/2 ML (SDV) Z0FRAN ONE (06:16)
[2017-12-17] MEDS ORDERED: ACETAMINOPHEN 500 MG TAB (TYLENOL) ONE (06:20)
[2017-12-17] MEDS ORDERED: ACETAMINOPHEN 500 MG TAB (TYLENOL) PO STA (06:22)
[2017-12-17] MEDS ORDERED: ONDANSETRON 4 MG/2 ML (SDV) Z0FRAN IVP ONE ×2 (06:45→07:00)
[2017-12-17] MEDS ORDERED: LACTATED RINGERS 1,000 ML IV ONE (06:59)
[2017-12-17] MEDS ORDERED: PROMETHAZINE INJ 25 MG/ML (PHENERGAN) AMP IVP STA (07:06)
[2017-12-17] MEDS ORDERED: PROMETHAZINE INJ 25 MG/ML (PHENERGAN) AMP ONE (07:08)
--- NOTE | 2017-12-17 07:22 | Diagnostic Imaging Report ---
PROCEDURE: CT head and CT cervical spine without contrast. TECHNIQUE: Multiple contiguous axial images were obtained through the brain and cervical spine without the use of intravenous contrast. Sagittal and coronal reformations through the cervical spine were then performed. INDICATION: Seizure. COMPARISON: CT head 04/30/2017 CT HEAD FINDINGS: The ventricles and sulci are within normal limits. There is no midline shift or mass effect. No evidence for acute intracranial hemorrhage or extra-axial fluid collections. The bony calvarium is intact. Minimal paranasal sinus disease. CT CERVICAL SPINE FINDINGS: There is normal alignment and curvature of the cervical spine. There is no evidence for acute bony abnormality. The odontoid is intact. The prevertebral soft tissues are normal. IMPRESSION: 1. No acute intracranial abnormality. If assessment for potential seizure foci desired, correlation with MRI recommended. 2. No evidence for acute cervical spine fracture or subluxation. A preliminary report was provided by [employer]. Dictated by: Dictated on workstation # [id number]
[2017-12-17 09:12] LABS: BILIRUBIN,URINE NEGATIVE (NEGATIVE); CLARITY,URINE SLIGHTLY CLOUDY; COLOR,URINE YELLOW; GLUCOSE, URINE (UA) 4+ (NEGATIVE); KETONES,URINE NEGATIVE (NEGATIVE); LEUKOCYTE ESTERASE ,URINE NEGATIVE (NEGATIVE); NITRITE,URINE NEGATIVE (NEGATIVE); PH,URINE 7 (5-9); PROTEIN,URINE NEGATIVE (NEGATIVE); UROBILINOGEN,URINE NORMAL (NORMAL)
[2017-12-17 09:47] LABS: BACTERIA,URINE NEGATIVE /HPF; WBC,URINE RARE /HPF
[2017-12-17] MEDS ORDERED: AMOX-358 PO (09:59)
[2017-12-17 10:07] VITALS: BP 132/74
== END 2017-12-17 10:07 | disposition home or self-care (01) ==
LOC: EDUNIT# 05:29 → ER 05:31
DX: E11.649 Type 2 diabetes mellitus with hypoglycemia without coma (principal); J01.90 Acute sinusitis, unspecified; G40.909 Epilepsy, unspecified, not intractable, without status epilepticus; Z79.4 Long term (current) use of insulin; Z87.19 Personal history of other diseases of the digestive system
CPT/HCPCS: 36415; 70450; 72125; 80053; 81000; 82962; 83735; 85025; 85652; 86141; 93041

== ENCOUNTER 2018-12-03 16:21 | Emergency (ER) | payer OTHER ==
[~2018-12-03] VITALS: Ht 182.8 cm; Wt 90.9 kg
[~2018-12-03 16:21] MED LIST changes: +AMOX-358 PO; +DEXTROSE 50% 50 ML (IMS) SYR ONE
[2018-12-03] MEDS ORDERED: DEXTROSE 50% 50 ML (IMS) SYR IV ONE (16:30)
--- NOTE | 2018-12-03 16:30 | ED General ---
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 At the desk when he became d iaphoretic, began moaning and leaned over. He was unresponsive to any verbal stimuli, unable to communicate. He was put in a chair, taken to room 7 and checked in as a patient. 20-gauge IV was started in the left antecubital fossa he was given 25 g of D50. Timing/Duration: Other Severity: Moderate Associated Systoms: Denies Symptoms Allergies and Home Medications Allergies Coded Allergies: No Known Drug Allergies (Unverified , 12/17/17) Home Medications Amoxicillin/Potassium Clav 1 Each Tablet, 1 EACH PO BID Prescribed by: CHANDAN POTTS on 12/17/17 0923 Patient Home Medication List Home Medication List Reviewed: Yes Review of Systems Review of Systems Constitutional: see HPI, diaphoresis EENTM: see HPI Respiratory: no symptoms reported Cardiovascular: no symptoms reported Genitourinary: no symptoms reported Musculoskeletal: no symptoms reported Skin: no symptoms reported Psychiatric/Neurological: No Symptoms Reported Hematologic/Lymphatic: No Symptoms Reported Immunological/Allergic: no symptoms reported Past Cdpwqta-Wsyiwn-Vluiqo Hx Patient Social History 2nd Hand Smoke Exposure: No Recent Foreign Travel: No Contact w/Someone Who Travel: No Recent Hopitalizations: No Immunizations Up To Date Tetanus Booster (TDap): Unknown Past Medical History Surgeries: No Respiratory: No Cardiac: No Neurological: Yes (SEIZURES DUE TO SEVERE HYPOGLYCEMIA--NOT EPILEPSY) Seizure Disorder Reproductive Disorders: No Sexually Transmitted Disease: No HIV/AIDS: No Gastrointestinal: Yes (CELIAC DISEASE) Musculoskeletal: No Endocrine: Yes (INSULIN PUMP) Diabetes, Insulin dep HEENT: No Cancer: No Psychosocial: No Integumentary: No Blood Disorders: No Family Medical History No Pertinent Family Hx Physical Exam Vital Signs Vital Signs - First Documented 12/03/18 16:21 Temp 36.3 Pulse 73 Resp 14 B/P (MAP) 149/92 (111) Pulse Ox 98 O2 Delivery Room Air Capillary Refill : Height, Weight, BMI Height: 6'0" Weight: 200lbs. oz. 90.297147xc; BMI Method:Stated General Appearance: No Apparent Distress, WD/WN Eyes: Bilateral Eye Normal Inspection, Bilateral Eye PERRL HEENT: PERRL/EOMI Neck: Full Range of Motion, Normal Inspection Respiratory: Normal Breath Sounds, No Accessory Muscle Use, No Respiratory Distress Cardiovascular: Regular Rate, Rhythm, Normal Peripheral Pulses Gastrointestinal: Normal Bowel Sounds, Non Tender, Soft Extremity: Normal Capillary Refill, Normal Inspection Neurologic/Psychiatric: Alert, Oriented x3 Skin: Normal Color, Diaphoresis Progress/Results/Core Measures Suspected Sepsis SIRS Temperature: Pulse: Respiratory Rate: Laboratory Tests 12/03/18 16:24: White Blood Count 8.1 Blood Pressure / Mean: Laboratory Tests 12/03/18 16:24: Creatinine 0.82, Platelet Count 360 Results/Orders Lab Results Laboratory Tests Test 12/03/18 16:24 Range/Units White Blood Count 8.1 4.3-11.0 10^3/uL Red Blood Count 5.57 4.35-5.85 10^6/uL Hemoglobin 12.6 L 13.3-17.7 G/DL Hematocrit 40 40-54 % Mean Corpuscular Volume 71 L 80-99 FL Mean Corpuscular Hemoglobin 23 L 25-34 PG Mean Corpuscular Hemoglobin Concent 32 32-36 G/DL Red Cell Distribution Width 17.1 H 10.0-14.5 % Platelet Count 360 130-400 10^3/uL Mean Platelet Volume 9.8 7.4-10.4 FL Neutrophils (%) (Auto) 38 L 42-75 % Lymphocytes (%) (Auto) 41 12-44 % Monocytes (%) (Auto) 15 H 0-12 % Eosinophils (%) (Auto) 6 0-10 % Basophils (%) (Auto) 1 0-10 % Neutrophils # (Auto) 3.1 1.8-7.8 X 10^3 Lymphocytes # (Auto) 3.3 1.0-4.0 X 10^3 Monocytes # (Auto) 1.2 H 0.0-1.0 X 10^3 Eosinophils # (Auto) 0.5 H 0.0-0.3 10^3/uL Basophils # (Auto) 0.1 0.0-0.1 10^3/uL Sodium Level 141 135-145 MMOL/L Potassium Level 3.2 L 3.6-5.0 MMOL/L Chloride Level 105 98-107 MMOL/L Carbon Dioxide Level 25 21-32 MMOL/L Anion Gap 11 5-14 MMOL/L Blood Urea Nitrogen 16 7-18 MG/DL Creatinine 0.82 0.60-1.30 MG/DL Estimat Glomerular Filtration Rate > 60 BUN/Creatinine Ratio 20 Glucose Level 26 *L 70-105 MG/DL Calcium Level 9.5 8.5-10.1 MG/DL My Orders Orders - DHEERAJ WHITAKER APRN Basic Metabolic Panel (12/03/18 16:26) Cbc With Automated Diff (12/03/18 16:26) Ed Iv/Invasive Line Start (12/03/18 16:26) D50w (Emergency) Syringe (Dextrose 50% 5 (12/03/18 16:30) Cho 75g/M 0snack (21-2400 Jama) (12/03/18 Dinner) Accucheck Stat ONCE (12/03/18 16:49) Medications Given in ED Current Medications Medications Dose Ordered Sig/Royer Route Start Time Stop Time Status Last Admin Dose Admin Dextrose 50 ml ONCE ONCE IV 12/03/18 16:30 12/03/18 16:31 DC 12/03/18 16:20 50 ML Vital Signs/I&O 12/03/18 16:21 Temp 36.3 Pulse 73 Resp 14 B/P (MAP) 149/92 (111) Pulse Ox 98 O2 Delivery Room Air Capillary Refill : Departure Communication (Admissions) [id number] IV was started he was given 25 g of D50 with almost immediate improvement in mentation back to baseline. 1651-up alert oriented walking around. Not concerned about waiting for a sandwich, he has an at access to glucometer test strips. He feels perfectly fine and would like to go on home. He is not worried about rechecking his sugar at this time, clinically, he is normal in appearance And back to baseline, I'm familiar with him from working with him. Impression Primary Impression: Hypoglycemia Disposition: 01 HOME, SELF-CARE Condition: Improved Departure-Patient Inst. Decision time for Depature: 16:30 Referrals: CESAR EASLEY DO (PCP/Family) Primary Care Physician Patient Instructions: Low Blood Sugar, Adult (DC) DHEERAJ WHITAKER APRN Dec 03, 2018 16:30
[2018-12-03 16:37] LABS: BASOPHILS # (AUTO) 0.1 10^3/uL (0.0-0.1); BASOPHILS % (AUTO) 1 % (0-10); EOSINOPHILS # (AUTO) 0.5 10^3/uL (0.0-0.3); EOSINOPHILS % (AUTO) 6 % (0-10); HEMATOCRIT 40 % (40-54); HEMOGLOBIN 12.6 G/DL (13.3-17.7); LYMPHOCYTES # (AUTO) 3.3 X 10^3 (1.0-4.0); LYMPHOCYTES % (AUTO) 41 % (12-44); MEAN CORPUSCULAR HEMOGLOBIN 23 PG (25-34); MEAN CORPUSCULAR HGB CONC 32 G/DL (32-36); MEAN CORPUSCULAR VOLUME 71 FL (80-99); MEAN PLATELET VOLUME 9.8 FL (7.4-10.4); MONOCYTES # (AUTO) 1.2 X 10^3 (0.0-1.0); MONOCYTES % (AUTO) 15 % (0-12); NEUTROPHILS # (AUTO) 3.1 X 10^3 (1.8-7.8); NEUTROPHILS % (AUTO) 38 % (42-75); PLATELET COUNT 360 10^3/uL (130-400); RED CELL DISTRIBUTION WIDTH 17.1 % (10.0-14.5); WHITE BLOOD COUNT 8.1 10^3/uL (4.3-11.0)
[2018-12-03 16:46] LABS: BUN/CREATININE RATIO 20; CALCIUM 9.5 MG/DL (8.5-10.1); CARBON DIOXIDE 25 MMOL/L (21-32); CHLORIDE 105 MMOL/L (98-107); CREATININE SERUM 0.82 MG/DL (0.60-1.30); GFR ESTIMATED > 60; POTASSIUM 3.2 MMOL/L (3.6-5.0); SODIUM 141 MMOL/L (135-145)
[2018-12-03 16:47] LABS: GLUCOSE 26 MG/DL (70-105)
[2018-12-03 17:07] VITALS: BP 149/92
== END 2018-12-03 17:07 | disposition home or self-care (01) ==
LOC: EDUNIT# 16:21 → ER 16:22
DX: E11.649 Type 2 diabetes mellitus with hypoglycemia without coma (principal); G40.909 Epilepsy, unspecified, not intractable, without status epilepticus; Z79.4 Long term (current) use of insulin
CPT/HCPCS: 36415; 80048; 85025; 96374

== ENCOUNTER → 2019-06-07 | Outpatient (CLI) | payer OTHER ==
[~2019-06-07] MED LIST changes: -DEXTROSE 50% 50 ML (IMS) SYR ONE
--- NOTE | 2019-06-07 13:05 | Diagnostic Imaging Report ---
INDICATION: Fall pain FINDINGS: Threaded screw transfixes the proximal phalanx of the 4th finger. No residual or recurrent fracture line at the operative site. There is no bone formation associated with a likely acute fracture involving the base of the 5th metacarpal. The fracture line is longitudinally oriented in its proximal aspect approaches and may extend into the articular surface which showed no offset. The bony fragment along the radial margin measured roughly 11 mm long with a width of 6 mm. IMPRESSION: Acute appearing likely intra-articular base of 5th metacarpal fracture a postoperative proximal phalanx 4th finger. No other injury. Dictated by: Dictated on workstation # [id number]
== END ==
LOC: RAD 10:21
PROVIDERS: ATTEND Family Medicine
DX: M79.641 Pain in right hand (principal); Z98.890 Other specified postprocedural states
CPT/HCPCS: 73130

== ENCOUNTER → 2019-06-09 | Outpatient (CLI) | payer OTHER | LOC: ORTHO 09:26 | PROVIDERS: ATTEND Orthopaedic Surgery | DX: S62.346A Nondisplaced fracture of base of fifth metacarpal bone, right hand, initial encounter for closed fracture (principal); J45.990 Exercise induced bronchospasm; E11.9 Type 2 diabetes mellitus without complications; Z98.890 Other specified postprocedural states ==

== ENCOUNTER → 2019-06-22 | Outpatient (CLI) | payer OTHER ==
--- NOTE | 2019-06-22 08:46 | Diagnostic Imaging Report ---
INDICATION: Followup fracture. TIME OF EXAM: 8:32 AM. COMPARISON: 06/07/2019. FINDINGS: The fracture involving the base of the 5th metacarpal is again noted. The fracture line does extend to the articular surface. Very slight distraction of the fracture fragment by nearly 2 mm is noted. The remaining metacarpals are intact. A fully threaded screw extends through the proximal phalanx of the 4th finger. IMPRESSION: Intra-articular base of 5th metacarpal fracture with slight distraction, as described. The fracture line does remain clearly visible. Dictated by: Dictated on workstation # [id number]
== END ==
LOC: ORTHO 08:17
PROVIDERS: ATTEND Orthopaedic Surgery
DX: S62.346A Nondisplaced fracture of base of fifth metacarpal bone, right hand, initial encounter for closed fracture (principal); J45.990 Exercise induced bronchospasm; E11.9 Type 2 diabetes mellitus without complications; Z98.890 Other specified postprocedural states; X58.XXXA Exposure to other specified factors, initial encounter
CPT/HCPCS: 73130

== ENCOUNTER → 2020-01-05 | Outpatient (CLI) | payer OTHER ==
[2020-01-05 11:43] LABS: ALBUMIN 4.5 GM/DL (3.2-4.5); CHLORIDE 103 MMOL/L (98-107); POTASSIUM 4.1 MMOL/L (3.6-5.0); SODIUM 140 MMOL/L (135-145)
[2020-01-05 11:44] LABS: CALCIUM 9.2 MG/DL (8.5-10.1)
[2020-01-05 11:45] LABS: GLUCOSE 133 MG/DL (70-105); TOTAL PROTEIN 7.6 GM/DL (6.4-8.2); TRIGLYCERIDES 38 MG/DL (<150); VLDL CHOLESTEROL 8 MG/DL (5-40)
[2020-01-05 11:46] LABS: CARBON DIOXIDE 26 MMOL/L (21-32)
[2020-01-05 11:47] LABS: BILIRUBIN,TOTAL 0.8 MG/DL (0.1-1.0)
[2020-01-05 11:48] LABS: BASOPHILS # (AUTO) 0.1 10^3/uL (0.0-0.1); BASOPHILS % (AUTO) 1 % (0-10); EOSINOPHILS # (AUTO) 0.3 10^3/uL (0.0-0.3); EOSINOPHILS % (AUTO) 5 % (0-10); HEMATOCRIT 43 % (40-54); HEMOGLOBIN 13.3 g/dL (13.3-17.7); LYMPHOCYTES # (AUTO) 2.1 10^3/uL (1.0-4.0); LYMPHOCYTES % (AUTO) 38 % (12-44); MEAN CORPUSCULAR HEMOGLOBIN 24 pg (25-34); MEAN CORPUSCULAR HGB CONC 31 g/dL (32-36); MEAN CORPUSCULAR VOLUME 78 fL (80-99); MEAN PLATELET VOLUME 9.6 fL (9.0-12.2); MONOCYTES # (AUTO) 0.5 10^3/uL (0.0-1.0); MONOCYTES % (AUTO) 9 % (0-12); NEUTROPHILS # (AUTO) 2.6 10^3/uL (1.8-7.8); NEUTROPHILS % (AUTO) 48 % (42-75); PLATELET COUNT 223 10^3/uL (130-400); WHITE BLOOD COUNT 5.5 10^3/uL (4.3-11.0)
[2020-01-05 11:49] LABS: ALKALINE PHOSPHATASE 43 U/L (40-136); CREATININE SERUM 0.93 MG/DL (0.60-1.30); GFR ESTIMATED > 60
[2020-01-05 11:50] LABS: BUN/CREATININE RATIO 17; CHOLESTEROL 139 MG/DL (< 200)
[2020-01-05 11:51] LABS: HDL CHOLESTEROL 73 MG/DL (40-60)
[2020-01-05 11:52] LABS: ALANINE AMINOTRANSFERASE 22 U/L (0-55)
== END ==
LOC: LAB 11:12
PROVIDERS: ATTEND Internal Medicine Endocrinology, Diabetes & Metabolism
DX: E11.9 Type 2 diabetes mellitus without complications (principal)
CPT/HCPCS: 36415; 80053; 80061; 82043; 84443; 85025

== ENCOUNTER → 2021-06-12 | Outpatient (CLI) | payer SELFPAY | LOC: LAB 14:49 | PROVIDERS: ATTEND Urology | DX: Z30.2 Encounter for sterilization (principal) | CPT/HCPCS: 89321 ==

== ENCOUNTER → 2022-01-30 | Outpatient (CLI) | payer MEDICAID ==
[2022-01-30 12:46] LABS: BASOPHILS % (AUTO) 1 % (0-10); EOSINOPHILS # (AUTO) 0.1 10^3/uL (0.0-0.3); EOSINOPHILS % (AUTO) 2 % (0-10); HEMATOCRIT 42 % (40-54); HEMOGLOBIN 14.2 g/dL (13.3-17.7); LYMPHOCYTES # (AUTO) 1.8 10^3/uL (1.0-4.0); LYMPHOCYTES % (AUTO) 33 % (12-44); MEAN CORPUSCULAR HEMOGLOBIN 29 pg (25-34); MEAN CORPUSCULAR HGB CONC 34 g/dL (32-36); MEAN CORPUSCULAR VOLUME 85 fL (80-99); MEAN PLATELET VOLUME 8.9 fL (9.0-12.2); MONOCYTES # (AUTO) 0.4 10^3/uL (0.0-1.0); MONOCYTES % (AUTO) 8 % (0-12); NEUTROPHILS # (AUTO) 3.1 10^3/uL (1.8-7.8); NEUTROPHILS % (AUTO) 56 % (42-75); PLATELET COUNT 346 10^3/uL (130-400); WHITE BLOOD COUNT 5.5 10^3/uL (4.3-11.0)
[2022-01-30 13:07] LABS: ALBUMIN 4.2 GM/DL (3.2-4.5); BILIRUBIN,TOTAL 0.5 MG/DL (0.1-1.0); CALCIUM 9.2 MG/DL (8.5-10.1); CREATININE SERUM 0.77 MG/DL (0.60-1.30); POTASSIUM 3.4 MMOL/L (3.6-5.0); TOTAL PROTEIN 7.7 GM/DL (6.4-8.2)
== END ==
LOC: LAB 12:15
PROVIDERS: ATTEND Internal Medicine Endocrinology, Diabetes & Metabolism
DX: K90.0 Celiac disease (principal); E11.9 Type 2 diabetes mellitus without complications
CPT/HCPCS: 36415; 80053; 80061; 82043; 82306; 82607; 82728; 83540; 83550; 84443; 85025